=== PATIENT | female | born 1980 | race Caucasian/White ===

== ENCOUNTER 2020-08-05 01:30 | Emergency (ER) | payer SELFPAY ==
[2020-08-05] MEDS ORDERED: Boostrix 0.5 ML (Tdap) VIAL ONE (02:06)
[2020-08-05] MEDS ORDERED: Lidocaine 1% 20 ML MDV ONE (02:29)
[2020-08-05] MEDS ORDERED: Rabies Vaccine Human 2.5 UNITS VIAL ONE (03:09)
[2020-08-05] MEDS ORDERED: Amoxicillin/Potassium Clav 875 MG TAB ONE (03:43)
== END 2020-08-05 04:07 | disposition left against medical advice (07) ==
LOC: MADERS 01:30
DX: S61.451A Open bite of right hand, initial encounter (principal); I10 Essential (primary) hypertension; E78.5 Hyperlipidemia, unspecified; F17.210 Nicotine dependence, cigarettes, uncomplicated; Z79.82 Long term (current) use of aspirin; Z79.899 Other long term (current) drug therapy; W54.0XXA Bitten by dog, initial encounter
CPT/HCPCS: 12004; 90376; 90471; 90472; 90675; 90715; 96372

== ENCOUNTER → 2020-08-08 | Day surgery (SDC) | payer SELFPAY ==
[~2020-08-08] MED LIST: Rabies Vaccine Human 2.5 UNITS VIAL ONE
== END ==
LOC: MADER/OP 09:41
PROVIDERS: ATTEND Pharmacist Pharmacotherapy
DX: Z23 Encounter for immunization (principal)
CPT/HCPCS: 90675; 96372

== ENCOUNTER → 2020-08-12 | Day surgery (SDC) | payer SELFPAY | LOC: MADER/OP 13:29 | PROVIDERS: ATTEND Emergency Medicine | DX: Z23 Encounter for immunization (principal); I10 Essential (primary) hypertension; E78.5 Hyperlipidemia, unspecified; F17.210 Nicotine dependence, cigarettes, uncomplicated; Z79.82 Long term (current) use of aspirin; Z79.899 Other long term (current) drug therapy | CPT/HCPCS: 90675 ==

== ENCOUNTER 2020-08-19 07:48 | Day surgery (SDC) | payer OTHER, SELFPAY ==
[2020-08-19] MEDS ORDERED: Rabies Vaccine Human 2.5 UNITS VIAL ONE (08:08)
== END 2020-08-19 07:49 | disposition home or self-care (01) ==
LOC: MADER/OP 07:48 → EDSTATUS 10:37
PROVIDERS: ATTEND Emergency Medicine
DX: Z23 Encounter for immunization (principal)
CPT/HCPCS: 90675; 96372